=== PATIENT | male | born 1965 | race American Indian/Alaskan Native ===

== ENCOUNTER 2018-12-27 03:20 | Emergency (ER) | payer MEDICARE ==
[2018-12-27] MEDS ORDERED: ZOFRAN IV ONE (03:46)
[2018-12-27] MEDS ORDERED: SUBLIMAZE IV ONE (03:46)
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
[2018-12-27 04:24] LABS: Basophils # (Auto) 0.1 K/mm3 (0.0-0.1); Basophils % (Auto) 0.8 % (0.0-1.8); Eosinophils # (Auto) 0.1 K/mm3 (0.0-0.4); Eosinophils % (Auto) 0.5 % (0.0-4.3); Hematocrit 34.3 % (35.5-45.6); Hemoglobin 10.9 gm/dl (11.8-15.2); Lymphocytes # (Auto) 2.3 K/mm3 (1.2-5.4); Lymphocytes % (Auto) 21.9 % (13.4-35.0); Mean Corpuscular HGB Conc 32 % (32-34); Mean Corpuscular Volume 75 fl (84-94); Monocytes # (Auto) 0.5 K/mm3 (0.0-0.8); Monocytes % (Auto) 4.8 % (0.0-7.3); Platelet Count 317 K/mm3 (140-440); Red Blood Count 4.56 M/mm3 (3.65-5.03); Red Cell Distribution Width 18.4 % (13.2-15.2)
[2018-12-27 04:36] LABS: Bacteria,Urine 1+ /HPF (Negative); Bilirubin,Urine NEG (Negative); Blood,Urine SM (Negative); Color,Urine Yellow (Yellow); Mucus,Urine FEW /HPF
[2018-12-27 04:39] LABS: WBC,Urine > 182.0 /HPF (0.0-6.0)
[2018-12-27 04:41] LABS: BUN/Creatinine Ratio 13; Blood Urea Nitrogen 10 mg/dL (9-20); Calcium 9.1 mg/dL (8.4-10.2); Hemolysis Index 3; INR 1.14 (0.87-1.13)
[2018-12-27 04:42] LABS: Partial Thromboplastin Time 31.2 Sec. (24.2-36.6)
[2018-12-27] MEDS ORDERED: LEVAQUIN PO ONE (04:45)
--- NOTE | 2018-12-27 05:25 | Ultrasound Report ---
US testicular doppler comp INDICATION / CLINICAL INFORMATION: right testicle swelling. COMPARISON: None available. FINDINGS: Study was limited due to patient tenderness. No testicular masses. Is a right hydrocele. Doppler imaging shows normal testicular blood flow bilaterally There is incomplete imaging of the epididymal structures. IMPRESSION: 1. Right hydrocele. 2. No evidence of torsion. Signer Name: Kal Merritt MD Signed: 12/27/2018 5:20 AM Workstation Name: [id number]
[2018-12-27 07:11] VITALS: BP 127/72
== END 2018-12-27 07:15 | disposition home or self-care (01) ==
LOC: ED 03:20
DX: N39.0 Urinary tract infection, site not specified (principal); I10 Essential (primary) hypertension; F41.9 Anxiety disorder, unspecified; F17.200 Nicotine dependence, unspecified, uncomplicated; F12.10 Cannabis abuse, uncomplicated; F14.90 Cocaine use, unspecified, uncomplicated; M79.10 Myalgia, unspecified site; G89.29 Other chronic pain; Z98.890 Other specified postprocedural states; Z88.8 Allergy status to other drugs, medicaments and biological substances; Z79.1 Long term (current) use of non-steroidal anti-inflammatories (NSAID); Z79.899 Other long term (current) drug therapy
CPT/HCPCS: 36415; 80048; 81001; 85025; 85610; 85730; 87086; 93975; 96374; 96375; 99285; J2405; J3010; 87076; 87186

== ENCOUNTER 2019-02-08 08:40 | Inpatient (IN) | payer MEDICARE ==
[2019-02-08] MEDS ORDERED: NORCO 5/325 ONE (09:44)
[2019-02-08] MEDS ORDERED: NORCO 5/325 PO ONE (09:51)
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
[2019-02-08] MEDS ORDERED: NEURONTIN PO ONE (11:03)
[2019-02-08] MEDS ORDERED: MORPHINE IV ONE (11:03)
[2019-02-08] MEDS ORDERED: NACL 0.9% 1000 ML 1,000 ML IV ONE (11:03)
[2019-02-08 11:07] LABS: Basophils # (Auto) 0.1 K/mm3 (0.0-0.1); Eosinophils # (Auto) 0.1 K/mm3 (0.0-0.4); Eosinophils % (Auto) 1.5 % (0.0-4.3); Hematocrit 35.4 % (35.5-45.6); Hemoglobin 11.3 gm/dl (11.8-15.2); Lymphocytes # (Auto) 1.9 K/mm3 (1.2-5.4); Lymphocytes % (Auto) 23.8 % (13.4-35.0); Mean Corpuscular HGB Conc 32 % (32-34); Mean Corpuscular Volume 76 fl (84-94); Monocytes # (Auto) 0.6 K/mm3 (0.0-0.8); Monocytes % (Auto) 6.8 % (0.0-7.3); Platelet Count 297 K/mm3 (140-440); Red Blood Count 4.68 M/mm3 (3.65-5.03); Red Cell Distribution Width 19.7 % (13.2-15.2)
--- NOTE | 2019-02-08 11:13 | Ultrasound Report ---
TESTICULAR ULTRASOUND INDICATION: Unspecified testicular pain. COMPARISON Testicular ultrasound from 12/27/2018. FINDINGS -- RIGHT TESTIS: Size: 3.8 x 2.1 x 3.5 cm. Echotexture: Normal. Color Doppler Flow: Normal. Lesions: None. EPIDIDYMIS: Size: Normal. Echotexture: Normal. Color Doppler Flow: Normal. Lesions: None. Hydrocele: Similar large right hydrocele. Varicocele: None. Additional Findings: None. FINDINGS -- LEFT TESTIS: Size: 3.9 x 2.1 x 2.4 cm. Echotexture: Similar nonspecific heterogeneity compared to the nickolas or study. Color Doppler Flow: Normal. Lesions: None. EPIDIDYMIS: Size: Normal. Echotexture: Normal. Color Doppler Flow: Normal. Lesions: None. Hydrocele: None. Varicocele: None. Additional Findings: None. IMPRESSION: 1. Similar large right hydrocele. 2. Similar nonspecific heterogeneity of the left testicle. 3. No new acute sonographic abnormality of the testicles/scrotum. Signer Name: Mamadou Lassiter MD Signed: 02/08/2019 11:09 AM Workstation Name: [id number]
[2019-02-08] MEDS ORDERED: ZOSYN/NS 4.5GM/100ML 4.5 GM/100 ML VIAL IV ONE (11:32)
[2019-02-08 11:41] LABS: BUN/Creatinine Ratio 17; Blood Urea Nitrogen 12 mg/dL (9-20); Calcium 9.6 mg/dL (8.4-10.2); Hemolysis Index 0
[2019-02-08 12:16] LABS: Bacteria,Urine 1+ /HPF (Negative); Bilirubin,Urine NEG (Negative); Blood,Urine NEG (Negative); Color,Urine Yellow (Yellow); Protein,Urine <15 mg/dL mg/dL (Negative); Urobilinogen,Urine < 2.0 mg/dL (<2.0)
[2019-02-08 12:31] LABS: Alanine Aminotransferase 6 units/L (7-56); Albumin 3.4 g/dL (3.9-5)
[2019-02-08 12:35] LABS: Bilirubin,Direct < 0.2 mg/dL (0-0.2)
--- NOTE | 2019-02-08 17:32 | Cat Scan Report ---
CT abdomen pelvis wo con INDICATION / CLINICAL INFORMATION: abnd pain grooin pain, scan through testicles. TECHNIQUE: Axial CT imaging of abdomen and pelvis was obtained without contrast. Coronal and sagittal reformatte d imaging obtained and reviewed. All CT scans at this location are performed using CT dose reduction for ALARA by means of automated exposure control. COMPARISON: Comparison is with testicular ultrasound performed earlier today. FINDINGS: CT abdomen without contrast demonstrates grossly normal appearance of the liver, spleen, pancreas, an d right kidney. Both adrenal glands are unremarkable. No gallbladder pathology noted. IVC filter is p resent. Left kidney is absent. CT pelvis without contrast shows no suggestion of pelvic mass, free fluid, or focal inflammatory scott ge. The prostate gland is mildly enlarged. Urinary bladder wall is mildly thickened. The colon contai ns a large amount of stool suggesting constipation. GI tract is otherwise unremarkable. There are enlarged lymph nodes throughout both inguinal areas. There is a large decubitus ulcer in the right gluteal region. No drainable fluid noted. There is scle rosis of the right is seen adjacent to the decubitus ulcer. There is slight cortical irregularity and osteomyelitis cannot be excluded. Visualized lung bases are clear. No additional significant osseous abnormality noted. IMPRESSION: 1. No acute finding within the abdomen or pelvis. 2. Absent left kidney. 3. Constipation. No fecal impaction. 4. Large right gluteal decubitus ulcer. The adjacent bone, right ischium, is sclerotic and irregular. I cannot exclude the possibility of osteomyelitis. 5. Bilateral inguinal adenopathy. Given the presence of the large right decubitus ulcer, I suspect th e adenopathy is reactive. Signer Name: Roro Nuñez MD Signed: 02/08/2019 5:28 PM Workstation Name: [id number]
[2019-02-08] MEDS ORDERED: CEPHULAC PO ONE (17:49)
[2019-02-08] MEDS ORDERED: TYLENOL PO PRN (22:21)
[2019-02-08] MEDS ORDERED: ZOFRAN IV PRN (22:21)
[2019-02-08] MEDS ORDERED: SODIUM CHLORIDE FLUSH SYRINGE 10 ML IV PRN (22:21)
[2019-02-08] MEDS: ZOSYN/NS 4.5GM/100ML 4.5 GM/100 ML VIAL IV SCH (23:36)
[2019-02-08] MEDS: NACL 0.9% 1000 ML 1,000 ML IV SCH (23:36)
[2019-02-08] MEDS: SODIUM CHLORIDE FLUSH SYRINGE 10 ML IV SCH (23:36)
[2019-02-09] MEDS: DILAUDID IV PRN ×4 (00:43→23:06)
[2019-02-09] MEDS: ZOSYN/NS 4.5GM/100ML 4.5 GM/100 ML VIAL IV SCH ×3 (06:21→22:00)
[2019-02-09 06:23] LABS: Red Blood Count 4.59 M/mm3 (3.65-5.03)
[2019-02-09 06:24] LABS: Basophils # (Auto) 0.1 K/mm3 (0.0-0.1); Basophils % (Auto) 1.1 % (0.0-1.8); Eosinophils # (Auto) 0.2 K/mm3 (0.0-0.4); Eosinophils % (Auto) 2.7 % (0.0-4.3); Hematocrit 34.8 % (35.5-45.6); Hemoglobin 11.1 gm/dl (11.8-15.2); Lymphocytes # (Auto) 1.8 K/mm3 (1.2-5.4); Lymphocytes % (Auto) 28.3 % (13.4-35.0); Mean Corpuscular HGB Conc 32 % (32-34); Mean Corpuscular Volume 76 fl (84-94); Monocytes # (Auto) 0.5 K/mm3 (0.0-0.8); Monocytes % (Auto) 7.1 % (0.0-7.3); Platelet Count 282 K/mm3 (140-440); Red Cell Distribution Width 19.8 % (13.2-15.2)
[2019-02-09 06:34] LABS: INR 1.12 (0.87-1.13)
[2019-02-09 06:50] LABS: Alanine Aminotransferase 6 units/L (7-56); BUN/Creatinine Ratio 14; Blood Urea Nitrogen 10 mg/dL (9-20); Calcium 8.7 mg/dL (8.4-10.2); Hemolysis Index 1
--- NOTE | 2019-02-09 07:23 | Event Note ---
Date: 02/08/19 See H/p in reports UTI --proteus Mirabilis sensitivity to zosyn IV
--- NOTE | 2019-02-09 07:59 | History and Physical Report ---
CHIEF COMPLAINT: Dysuria. HISTORY OF PRESENT ILLNESS: A 53-year-old male presents with bilateral testicular swelling for the last 6 months. Also, left groin pain. Positive chills and positive sweats and the patient self-catheterizes. The patient also has chronic sacral wounds. The patient was admitted to the hospital for genitourinary issues last month and was discharged on Levaquin. Subsequent cultures demonstrated extended spectrum beta lactamase Proteus mirabilis, which is resistant to most antibiotics with the exception of Zosyn. The patient is also requesting gabapentin for neuropathic pain. PAST MEDICAL HISTORY: Significant for hypertension, anxiety, dementia, thoracic pain and sacral decubitus ulcers. PAST SURGICAL HISTORY: Left kidney removal, left groin filter, removal of approximately 6 inches of small intestine. SOCIAL HISTORY: Smokes every day. Marijuana. REVIEW OF SYSTEMS: Significant for chronic weakness in both lower extremities and sacral decubitus ulcers and dysuria. PHYSICAL EXAMINATION: GENERAL: Middle-aged male. VITAL SIGNS: Temperature is 98.4, pulse is 88, respirations are 18, sats are 95%, blood pressure 106/73. HEENT: Unremarkable. Pupils equal and reactive. NECK: Supple, no lymphadenopathy, no thyromegaly. LUNGS: Clear to auscultation and percussion. Good air entry. CARDIOVASCULAR: S1, S2 heard. No gallop, no murmur, no rub. Apical impulse in left fifth intercostal space in midclavicular line. ABDOMEN: Soft and benign. Sacral decubitus ulcer stage IV present. EXTREMITIES: 3/5 power in both lower extremities. SKIN: Sacral decubitus ulcer. CENTRAL NERVOUS SYSTEM: Paraplegic. GENITAL: Testicular swelling. Tender to touch. LABORATORY DATA: Significant for white count of 8200, H and H are 11.3 and 35.4. Sodium is 136, BUN and creatinine are 12 and 0.7. LFTs are normal. Urine wbc shows 42. ASSESSMENT AND PLAN: 1. Urinary tract infection with Proteus mirabilis, extended spectrum beta lactamase. The patient started on IV Zosyn. 2. Sacral decubitus ulcer. Surgery and wound consult requested. IV Zosyn for now. Continue gabapentin. 3. Anticoagulation. Continue Coumadin. Possibly to prevent deep venous thrombosis. 4. Testicular swelling. Urology consulted. The patient already on antibiotics. A testicular ultrasound ordered. 5. Deep venous thrombosis prophylaxis. The patient already on warfarin. JOB# [id number] SANTY/REGAN
[2019-02-09] MEDS: PEPCID PO SCH ×2 (11:12→22:00)
[2019-02-09] MEDS: NACL 0.9% 1000 ML 1,000 ML IV SCH (11:13)
[2019-02-09] MEDS: SODIUM CHLORIDE FLUSH SYRINGE 10 ML IV SCH ×2 (11:13→22:00)
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
--- NOTE | 2019-02-09 14:52 | Progress Note ---
Assessment and Plan Assessment and plan: Urinary tract infection Admitted to med/surg Patient evaluated by ID Physician For Zosyn X 21 days Paraplegia patient does self-catheterization Decubitus ulcer surgery consulted On Coumadin. Details unclear Full code status History Interval history: Groin pain No fever Hospitalist Physical - Physical exam Narrative exam: Gen: Not in acute distress, lying in bed HEENT: Normocephalic, atraumatic Neck: supple, no JVD Heart: S1 and S2 reg, tachy, no murmurs, rubs or gallop Lungs: Clear to auscultation, no rhonchi, no wheeze Abd: soft, mild epigastric tender, no rebound, non distended, normal BS, Ext: No edema, no clubbing, no cyanosis Neuro: Awake, alert, oriented X 3, paraplegia Genuitourinary: Hannon catheter in - Constitutional Vitals: Temp Pulse Resp BP Pulse Ox 98.4 F 54 L 20 150/89 98 02/09/19 05:00 02/09/19 05:00 02/09/19 05:00 02/09/19 05:00 02/09/19 05:00 Results - Labs CBC & Chem 7: 02/09/19 05:48 02/09/19 05:48 Labs: Laboratory Last Values WBC 6.5 K/mm3 (4.5-11.0) 02/09/19 05:48 RBC 4.59 M/mm3 (3.65-5.03) 02/09/19 05:48 Hgb 11.1 gm/dl (11.8-15.2) L 02/09/19 05:48 Hct 34.8 % (35.5-45.6) L 02/09/19 05:48 MCV 76 fl (84-94) L 02/09/19 05:48 MCH 24 pg (28-32) L 02/09/19 05:48 MCHC 32 % (32-34) 02/09/19 05:48 RDW 19.8 % (13.2-15.2) H 02/09/19 05:48 Plt Count 282 K/mm3 (140-440) 02/09/19 05:48 Lymph % (Auto) 28.3 % (13.4-35.0) 02/09/19 05:48 [place] % (Auto) 7.1 % (0.0-7.3) 02/09/19 05:48 Eos % (Auto) 2.7 % (0.0-4.3) 02/09/19 05:48 Baso % (Auto) 1.1 % (0.0-1.8) 02/09/19 05:48 Lymph # 1.8 K/mm3 (1.2-5.4) 02/09/19 05:48 Garden # 0.5 K/mm3 (0.0-0.8) 02/09/19 05:48 Eos # 0.2 K/mm3 (0.0-0.4) 02/09/19 05:48 Baso # 0.1 K/mm3 (0.0-0.1) 02/09/19 05:48 Seg Neutrophils % 60.8 % (40.0-70.0) 02/09/19 05:48 Seg Neutrophils # 4.0 K/mm3 (1.8-7.7) 02/09/19 05:48 PT 14.1 Sec. (12.2-14.9) 02/09/19 05:48 INR 1.12 (0.87-1.13) 02/09/19 05:48 Sodium 135 mmol/L (137-145) L 02/09/19 05:48 Potassium 4.0 mmol/L (3.6-5.0) 02/09/19 05:48 Chloride 101.1 mmol/L (98-107) 02/09/19 05:48 Carbon Dioxide 24 mmol/L (22-30) 02/09/19 05:48 14 mmol/L 02/09/19 05:48 BUN 10 mg/dL (9-20) 02/09/19 05:48 0.7 mg/dL (0.8-1.5) L 02/09/19 05:48 Estimated GFR > 60 ml/min 02/09/19 05:48 14 % 02/09/19 05:48 Glucose 122 mg/dL (75-100) H 02/09/19 05:48 6.4 % (4-6) H 02/08/19 10:34 Lactic Acid 0.80 mmol/L (0.7-2.0) 02/08/19 10:34 Calcium 8.7 mg/dL (8.4-10.2) 02/09/19 05:48 0.20 mg/dL (0.1-1.2) 02/09/19 05:48 < 0.2 mg/dL (0-0.2) 02/08/19 10:34 0.0 mg/dL 02/08/19 10:34 AST 8 units/L (5-40) 02/09/19 05:48 ALT 6 units/L (7-56) L 02/09/19 05:48 60 units/L (35-129) 02/09/19 05:48 147 units/L (55-170) 02/08/19 10:34 7.4 g/dL (6.3-8.2) 02/09/19 05:48 3.0 g/dL (3.9-5) L 02/09/19 05:48 0.7 % 02/09/19 05:48 16 units/L (13-60) 02/08/19 10:34 Yellow (Yellow) 02/08/19 Unknown Slightly-cloudy (Clear) 02/08/19 Unknown 6.0 (5.0-7.0) 02/08/19 Unknown Ur Specific [place] 1.016 (1.003-1.030) 02/08/19 Unknown <15 mg/dl mg/dL (Negative) 02/08/19 Unknown Neg mg/dL (Negative) 02/08/19 Unknown Neg mg/dL (Negative) 02/08/19 Unknown Neg (Negative) 02/08/19 Unknown Pos (Negative) 02/08/19 Unknown Neg (Negative) 02/08/19 Unknown < 2.0 mg/dL (<2.0) 02/08/19 Unknown Ur Leukocyte Esterase Mod (Negative) 02/08/19 Unknown 42.0 /HPF (0.0-6.0) H 02/08/19 Unknown 3.0 /HPF (0.0-6.0) 02/08/19 Unknown U Epithel Cells (Auto) 2.0 /HPF (0-13.0) 02/08/19 Unknown 1+ /HPF (Negative) 02/08/19 Unknown Active Medications - Current Medications Current Medications: Generic Name Dose Route Start Last Admin Trade Name Freq PRN Reason Stop Dose Admin Acetaminophen 650 mg 02/08/19 22:21 Tylenol PO Q4H PRN Pain MILD(1-3)/Fever >100.5/PARKS Famotidine 20 mg 02/09/19 10:00 02/09/19 11:12 Pepcid PO 20 mg BID JOSELYN Administration Gabapentin 300 mg 02/09/19 14:00 Neurontin PO Q8HR JOSELYN Hydromorphone HCl 0.5 mg 02/08/19 22:21 02/09/19 11:13 Dilaudid IV 0.5 mg Q3H PRN Administration Pain , Severe (7-10) Sodium Chloride 1,000 mls @ 100 mls/hr 02/08/19 23:00 02/09/19 11:13 Nacl 0.9% 1000 Ml IV 100 mls/hr DIRECT JOSELYN Administration Piperacillin Sod/Tazobactam Sod 4.5 gm in 100 mls @ 200 mls/hr 02/08/19 23:00 02/09/19 06:21 Zosyn/Ns 4.5gm/100ml IV 200 mls/hr Q8HR JOSELYN Administration Protocol Ondansetron HCl 4 mg 02/08/19 22:21 Zofran IV Q8H PRN Nausea And Vomiting Sodium Chloride 10 ml 02/08/19 23:00 02/09/19 11:13 Sodium Chloride Flush Syringe 10 Ml IV 10 ml BID JOSELYN Administration Sodium Chloride 10 ml 02/08/19 22:21 Sodium Chloride Flush Syringe 10 Ml IV PRN PRN LINE FLUSH Warfarin Sodium 10 mg 02/09/19 17:00 Coumadin PO DAILY@1700 [facility] Protocol Nutrition/Malnutrition Assess - Dietary Evaluation Nutrition/Malnutrition Findings: Nutrition Notes Start: 02/09/19 11:52 Freq: Status: Active Protocol: Document 02/09/19 11:52 KAITLIN (Rec: 02/09/19 11:53 KAITLIN [email or web address]) Nutrition Notes Need for Assessment generated from: Education Initial or Follow up Brief Note Pertinent Medications Coumadin Subjective/Other Information Pt screened for coumadin therapy. He is sleeping soundly at time of visit (11: 06). Nutrition Intervention Follow-Up By: 02/10/19 Additional Comments F/U: DNI education needs
[2019-02-09] MEDS: NEURONTIN PO SCH ×2 (16:31→22:00)
[2019-02-09] MEDS: COUMADIN PO SCH (17:16)
[2019-02-10] MEDS: ZOSYN/NS 4.5GM/100ML 4.5 GM/100 ML VIAL IV SCH ×3 (06:10→23:08)
[2019-02-10] MEDS: NACL 0.9% 1000 ML 1,000 ML IV SCH (06:10)
[2019-02-10] MEDS: NEURONTIN PO SCH ×3 (06:12→23:08)
[2019-02-10 08:31] LABS: INR 1.12 (0.87-1.13)
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
[2019-02-10] MEDS: PEPCID PO SCH ×2 (12:01→23:08)
[2019-02-10] MEDS: DILAUDID IV PRN ×4 (12:01→23:09)
[2019-02-10] MEDS: SODIUM CHLORIDE FLUSH SYRINGE 10 ML IV SCH ×2 (12:02→23:10)
--- NOTE | 2019-02-10 12:55 | Progress Note ---
Assessment and Plan Assessment and plan: Urinary tract infection Admitted to med/surg Patient evaluated by ID Physician For Zosyn X 21 days Paraplegia patient does self-catheterization Decubitus ulcer surgery consulted On Coumadin. Details unclear Full code status patient to be discharged after arrangements made for home iv antibiotic History Interval history: Groin pain No fever Hospitalist Physical - Physical exam Narrative exam: Gen: Not in acute distress, lying in bed HEENT: Normocephalic, atraumatic Neck: supple, no JVD Heart: S1 and S2 reg, tachy, no murmurs, rubs or gallop Lungs: Clear to auscultation, no rhonchi, no wheeze Abd: soft, mild epigastric tender, no rebound, non distended, normal BS, Ext: No edema, no clubbing, no cyanosis Neuro: Awake, alert, oriented X 3, paraplegia Genuitourinary: Hannon catheter in - Constitutional Vitals: Temp Pulse Resp BP Pulse Ox 98.6 F 73 18 118/53 98 02/09/19 22:08 02/09/19 22:08 02/09/19 23:06 02/09/19 22:08 02/09/19 22:08 Results - Labs CBC & Chem 7: 02/09/19 05:48 02/09/19 05:48 Labs: Laboratory Last Values WBC 6.5 K/mm3 (4.5-11.0) 02/09/19 05:48 RBC 4.59 M/mm3 (3.65-5.03) 02/09/19 05:48 Hgb 11.1 gm/dl (11.8-15.2) L 02/09/19 05:48 Hct 34.8 % (35.5-45.6) L 02/09/19 05:48 MCV 76 fl (84-94) L 02/09/19 05:48 MCH 24 pg (28-32) L 02/09/19 05:48 MCHC 32 % (32-34) 02/09/19 05:48 RDW 19.8 % (13.2-15.2) H 02/09/19 05:48 Plt Count 282 K/mm3 (140-440) 02/09/19 05:48 Lymph % (Auto) 28.3 % (13.4-35.0) 02/09/19 05:48 [place] % (Auto) 7.1 % (0.0-7.3) 02/09/19 05:48 Eos % (Auto) 2.7 % (0.0-4.3) 02/09/19 05:48 Baso % (Auto) 1.1 % (0.0-1.8) 02/09/19 05:48 Lymph # 1.8 K/mm3 (1.2-5.4) 02/09/19 05:48 White # 0.5 K/mm3 (0.0-0.8) 02/09/19 05:48 Eos # 0.2 K/mm3 (0.0-0.4) 02/09/19 05:48 Baso # 0.1 K/mm3 (0.0-0.1) 02/09/19 05:48 Seg Neutrophils % 60.8 % (40.0-70.0) 02/09/19 05:48 Seg Neutrophils # 4.0 K/mm3 (1.8-7.7) 02/09/19 05:48 PT 14.1 Sec. (12.2-14.9) 02/10/19 07:43 INR 1.12 (0.87-1.13) 02/10/19 07:43 Sodium 135 mmol/L (137-145) L 02/09/19 05:48 Potassium 4.0 mmol/L (3.6-5.0) 02/09/19 05:48 Chloride 101.1 mmol/L (98-107) 02/09/19 05:48 Carbon Dioxide 24 mmol/L (22-30) 02/09/19 05:48 14 mmol/L 02/09/19 05:48 BUN 10 mg/dL (9-20) 02/09/19 05:48 0.7 mg/dL (0.8-1.5) L 02/09/19 05:48 Estimated GFR > 60 ml/min 02/09/19 05:48 14 % 02/09/19 05:48 Glucose 122 mg/dL (75-100) H 02/09/19 05:48 6.4 % (4-6) H 02/08/19 10:34 Lactic Acid 0.80 mmol/L (0.7-2.0) 02/08/19 10:34 Calcium 8.7 mg/dL (8.4-10.2) 02/09/19 05:48 0.20 mg/dL (0.1-1.2) 02/09/19 05:48 < 0.2 mg/dL (0-0.2) 02/08/19 10:34 0.0 mg/dL 02/08/19 10:34 AST 8 units/L (5-40) 02/09/19 05:48 ALT 6 units/L (7-56) L 02/09/19 05:48 60 units/L (35-129) 02/09/19 05:48 147 units/L (55-170) 02/08/19 10:34 7.4 g/dL (6.3-8.2) 02/09/19 05:48 3.0 g/dL (3.9-5) L 02/09/19 05:48 0.7 % 02/09/19 05:48 16 units/L (13-60) 02/08/19 10:34 Yellow (Yellow) 02/08/19 Unknown Slightly-cloudy (Clear) 02/08/19 Unknown 6.0 (5.0-7.0) 02/08/19 Unknown Ur Specific [place] 1.016 (1.003-1.030) 02/08/19 Unknown <15 mg/dl mg/dL (Negative) 02/08/19 Unknown Neg mg/dL (Negative) 02/08/19 Unknown Neg mg/dL (Negative) 02/08/19 Unknown Neg (Negative) 02/08/19 Unknown Pos (Negative) 02/08/19 Unknown Neg (Negative) 02/08/19 Unknown < 2.0 mg/dL (<2.0) 02/08/19 Unknown Ur Leukocyte Esterase Mod (Negative) 02/08/19 Unknown 42.0 /HPF (0.0-6.0) H 02/08/19 Unknown 3.0 /HPF (0.0-6.0) 02/08/19 Unknown U Epithel Cells (Auto) 2.0 /HPF (0-13.0) 02/08/19 Unknown 1+ /HPF (Negative) 02/08/19 Unknown Active Medications - Current Medications Current Medications: Generic Name Dose Route Start Last Admin Trade Name Freq PRN Reason Stop Dose Admin Acetaminophen 650 mg 08/27/19 22:21 Tylenol PO Q4H PRN Pain MILD(1-3)/Fever >100.5/PARKS Famotidine 20 mg 02/09/19 10:00 02/10/19 12:01 Pepcid PO 20 mg BID JOSELYN Administration Gabapentin 300 mg 02/09/19 14:00 02/10/19 06:12 Neurontin PO 300 mg Q8HR JOSELYN Administration Hydromorphone HCl 0.5 mg 02/08/19 22:21 02/10/19 12:01 Dilaudid IV 0.5 mg Q3H PRN Administration Pain , Severe (7-10) Sodium Chloride 1,000 mls @ 100 mls/hr 02/08/19 23:00 02/10/19 06:10 Nacl 0.9% 1000 Ml IV 100 mls/hr DIRECT JOSELYN Administration Piperacillin Sod/Tazobactam Sod 4.5 gm in 100 mls @ 200 mls/hr 02/08/19 23:00 02/10/19 06:10 Zosyn/Ns 4.5gm/100ml IV 02/15/19 14:29 200 mls/hr Q8HR JOSELYN Administration Protocol Ondansetron HCl 4 mg 02/08/19 22:21 Zofran IV Q8H PRN Nausea And Vomiting Sodium Chloride 10 ml 02/08/19 23:00 02/10/19 12:02 Sodium Chloride Flush Syringe 10 Ml IV 10 ml BID JOSELYN Administration Sodium Chloride 10 ml 02/08/19 22:21 Sodium Chloride Flush Syringe 10 Ml IV PRN PRN LINE FLUSH Warfarin Sodium 10 mg 02/09/19 17:00 02/09/19 17:16 Coumadin PO 10 mg DAILY@1700 JOSELYN Administration Protocol Nutrition/Malnutrition Assess - Dietary Evaluation Nutrition/Malnutrition Findings: Nutrition Notes Start: 02/09/19 11:52 Freq: Status: Active Protocol: Document 02/09/19 11:52 KAITLIN (Rec: 02/09/19 11:53 KAITLIN [email or web address]) Nutrition Notes Need for Assessment generated from: Education Initial or Follow up Brief Note Pertinent Medications Coumadin Subjective/Other Information Pt screened for coumadin therapy. He is sleeping soundly at time of visit (11: 06). Nutrition Intervention Follow-Up By: 02/10/19 Additional Comments F/U: DNI education needs
[2019-02-10] MEDS: COUMADIN PO SCH (20:01)
[2019-02-11 05:28] LABS: INR 1.07 (0.87-1.13)
[2019-02-11] MEDS: NEURONTIN PO SCH ×3 (07:00→21:15)
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
[2019-02-11] MEDS ORDERED: PERCOCET 5/325 PO PRN (09:30)
[2019-02-11] MEDS: DILAUDID IV PRN ×4 (11:31→21:51)
[2019-02-11] MEDS: PEPCID PO SCH ×2 (11:32→21:14)
[2019-02-11] MEDS: ZOSYN/NS 4.5GM/100ML 4.5 GM/100 ML VIAL IV SCH ×3 (11:45→21:14)
[2019-02-11] MEDS: SODIUM CHLORIDE FLUSH SYRINGE 10 ML IV SCH ×2 (11:49→21:15)
--- NOTE | 2019-02-11 15:33 | Progress Note ---
Assessment and Plan Assessment and plan: Urinary tract infection Admitted to med/surg Patient evaluated by ID Physician For home iv Antibiotic Zosyn X 21 days case management working on it Paraplegia patient does self-catheterization Decubitus ulcer surgery consulted On Coumadin. Details unclear Full code status Patient medically stable for discharge. Awaiting arrangements for home iv antibiotic History Interval history: Groin pain No fever Hospitalist Physical - Physical exam Narrative exam: Gen: Not in acute distress, lying in bed HEENT: Normocephalic, atraumatic Neck: supple, no JVD Heart: S1 and S2 reg, tachy, no murmurs, rubs or gallop Lungs: Clear to auscultation, no rhonchi, no wheeze Abd: soft, mild epigastric tender, no rebound, non distended, normal BS, Ext: No edema, no clubbing, no cyanosis Neuro: Awake, alert, oriented X 3, paraplegia Genuitourinary: Hannon catheter in - Constitutional Vitals: Temp Pulse Resp BP Pulse Ox 98.3 F 74 20 163/97 96 02/11/19 11:09 02/11/19 11:09 02/11/19 11:09 02/11/19 11:09 02/11/19 11:09 Results - Labs CBC & Chem 7: 02/09/19 05:48 02/09/19 05:48 Labs: Laboratory Last Values WBC 6.5 K/mm3 (4.5-11.0) 02/09/19 05:48 RBC 4.59 M/mm3 (3.65-5.03) 02/09/19 05:48 Hgb 11.1 gm/dl (11.8-15.2) L 02/09/19 05:48 Hct 34.8 % (35.5-45.6) L 02/09/19 05:48 MCV 76 fl (84-94) L 02/09/19 05:48 MCH 24 pg (28-32) L 02/09/19 05:48 MCHC 32 % (32-34) 02/09/19 05:48 RDW 19.8 % (13.2-15.2) H 02/09/19 05:48 Plt Count 282 K/mm3 (140-440) 02/09/19 05:48 Lymph % (Auto) 28.3 % (13.4-35.0) 02/09/19 05:48 [place] % (Auto) 7.1 % (0.0-7.3) 02/09/19 05:48 Eos % (Auto) 2.7 % (0.0-4.3) 02/09/19 05:48 Baso % (Auto) 1.1 % (0.0-1.8) 02/09/19 05:48 Lymph # 1.8 K/mm3 (1.2-5.4) 02/09/19 05:48 [place] # 0.5 K/mm3 (0.0-0.8) 02/09/19 05:48 Eos # 0.2 K/mm3 (0.0-0.4) 02/09/19 05:48 Baso # 0.1 K/mm3 (0.0-0.1) 02/09/19 05:48 Seg Neutrophils % 60.8 % (40.0-70.0) 02/09/19 05:48 Seg Neutrophils # 4.0 K/mm3 (1.8-7.7) 02/09/19 05:48 PT 13.6 Sec. (12.2-14.9) 02/11/19 04:28 INR 1.07 (0.87-1.13) 02/11/19 04:28 Sodium 135 mmol/L (137-145) L 02/09/19 05:48 Potassium 4.0 mmol/L (3.6-5.0) 02/09/19 05:48 Chloride 101.1 mmol/L (98-107) 02/09/19 05:48 Carbon Dioxide 24 mmol/L (22-30) 02/09/19 05:48 14 mmol/L 02/09/19 05:48 BUN 10 mg/dL (9-20) 02/09/19 05:48 0.7 mg/dL (0.8-1.5) L 02/09/19 05:48 Estimated GFR > 60 ml/min 02/09/19 05:48 14 % 02/09/19 05:48 Glucose 122 mg/dL (75-100) H 02/09/19 05:48 6.4 % (4-6) H 02/08/19 10:34 Lactic Acid 0.80 mmol/L (0.7-2.0) 02/08/19 10:34 Calcium 8.7 mg/dL (8.4-10.2) 02/09/19 05:48 0.20 mg/dL (0.1-1.2) 02/09/19 05:48 < 0.2 mg/dL (0-0.2) 02/08/19 10:34 0.0 mg/dL 02/08/19 10:34 AST 8 units/L (5-40) 02/09/19 05:48 ALT 6 units/L (7-56) L 02/09/19 05:48 60 units/L (35-129) 02/09/19 05:48 147 units/L (55-170) 02/08/19 10:34 7.4 g/dL (6.3-8.2) 02/09/19 05:48 3.0 g/dL (3.9-5) L 02/09/19 05:48 0.7 % 02/09/19 05:48 16 units/L (13-60) 02/08/19 10:34 Yellow (Yellow) 02/08/19 Unknown Slightly-cloudy (Clear) 02/08/19 Unknown 6.0 (5.0-7.0) 02/08/19 Unknown Ur Specific [place] 1.016 (1.003-1.030) 02/08/19 Unknown <15 mg/dl mg/dL (Negative) 02/08/19 Unknown Neg mg/dL (Negative) 02/08/19 Unknown Neg mg/dL (Negative) 02/08/19 Unknown Neg (Negative) 02/08/19 Unknown Pos (Negative) 02/08/19 Unknown Neg (Negative) 02/08/19 Unknown < 2.0 mg/dL (<2.0) 02/08/19 Unknown Ur Leukocyte Esterase Mod (Negative) 02/08/19 Unknown 42.0 /HPF (0.0-6.0) H 02/08/19 Unknown 3.0 /HPF (0.0-6.0) 02/08/19 Unknown U Epithel Cells (Auto) 2.0 /HPF (0-13.0) 02/08/19 Unknown 1+ /HPF (Negative) 02/08/19 Unknown Active Medications - Current Medications Current Medications: Generic Name Dose Route Start Last Admin Trade Name Freq PRN Reason Stop Dose Admin Acetaminophen 650 mg 02/08/19 22:21 Tylenol PO Q4H PRN Pain MILD(1-3)/Fever >100.5/PARKS Famotidine 20 mg 02/09/19 10:00 02/11/19 11:32 Pepcid PO 20 mg BID JOSELYN Administration Gabapentin 300 mg 02/09/19 14:00 02/11/19 13:34 Neurontin PO 300 mg Q8HR JOSELYN Administration Hydromorphone HCl 0.5 mg 02/08/19 22:21 02/11/19 15:12 Dilaudid IV 0.5 mg Q3H PRN Administration Pain , Severe (7-10) Sodium Chloride 1,000 mls @ 100 mls/hr 02/08/19 23:00 02/10/19 06:10 Nacl 0.9% 1000 Ml IV 100 mls/hr DIRECT JOSELYN Administration Piperacillin Sod/Tazobactam Sod 4.5 gm in 100 mls @ 200 mls/hr 02/08/19 23:00 02/11/19 11:45 Zosyn/Ns 4.5gm/100ml IV 02/15/19 14:29 200 mls/hr Q8HR [facility] Administration Protocol Ondansetron HCl 4 mg 02/08/19 22:21 Zofran IV Q8H PRN Nausea And Vomiting Oxycodone/Acetaminophen 1 tab 02/11/19 09:30 Percocet 5/325 PO Q6H PRN Pain, Moderate (4-6) Sodium Chloride 10 ml 02/08/19 23:00 02/11/19 11:49 Sodium Chloride Flush Syringe 10 Ml IV 10 ml BID JOSELYN Administration Sodium Chloride 10 ml 02/08/19 22:21 Sodium Chloride Flush Syringe 10 Ml IV PRN PRN LINE FLUSH Warfarin Sodium 10 mg 02/09/19 17:00 02/10/19 20:01 Coumadin PO 10 mg DAILY@1700 [facility] Administration Protocol Warfarin Sodium 2.5 mg 02/11/19 17:00 Coumadin PO DAILY@1700 [facility] Nutrition/Malnutrition Assess - Dietary Evaluation Nutrition/Malnutrition Findings: Nutrition Notes Start: 02/09/19 11:52 Freq: Status: Active Protocol: Document 02/10/19 13:53 RM (Rec: 02/10/19 14:01 RM [email or web address]) Nutrition Notes Initial or Follow up Assessment Current Diagnosis Hypertension Other Pertinent Diagnosis Anxiety, Dementia, R & L Ischium wounds Current Diet Cardiac Labs/Tests Reviewed Pertinent Medications Coumadin Height 6 ft 1 in Weight 97.7 kg [place] Body Weight (kg) 83.63 BMI 28.4 Subjective/Other Information Pt stated that his appetite is good and that he eats all of his meals. Pt has increased protein needs d/t wounds but declined high protein ONS and requested double protein instead. Pt familiar with Coumadin/Vit K diet education. Percent of energy/protein needs met: 94%/71% Burn Absent Trauma Absent #1 Nutrition Diagnosis Increased nutrient needs ( specify in comment below) Comments: arginine, glutamine, protein Etiology wound healing As Evidenced by Signs and Symptoms R & L ischium wounds Is patient on ventilator? No Is Patient Ambulatory and/or Out of Bed No REE-([facility]-confined to bed) 9904.066 Calculation Used for Recommendations [facility] Additional Notes Protein Needs: 117-147g (1.2-1 .5g/kg) Fluid Needs: 1 ml/kcal Nutrition Intervention Change Diet Order: Cardiac w/double protein Add Supplement/Snack (indicate name/kcal Gary BID /protein ) Provides kCal: 190 Provides Protein (gm) 5 Goal #1 Meet at least 75% of calorie and protein needs via PO intakes Goal #2 Gary intake Anticipated Discharge Needs: Cardiac diet Follow-Up By: 02/15/19 Additional Comments Follow for PO and Gary intakes
[2019-02-11] MEDS: COUMADIN PO SCH ×2 (18:24→18:26)
[2019-02-11] MEDS: NACL 0.9% 1000 ML 1,000 ML IV SCH (18:30)
[2019-02-12] MEDS: DILAUDID IV PRN ×7 (01:53→21:42)
[2019-02-12] MEDS: NEURONTIN PO SCH ×3 (05:29→21:43)
[2019-02-12] MEDS: ZOSYN/NS 4.5GM/100ML 4.5 GM/100 ML VIAL IV SCH ×3 (05:29→21:46)
[2019-02-12 06:20] LABS: INR 1.19 (0.87-1.13)
[2019-02-12] MEDS: PEPCID PO SCH ×2 (10:22→21:43)
[2019-02-12] MEDS: SODIUM CHLORIDE FLUSH SYRINGE 10 ML IV SCH ×2 (10:24→21:47)
--- NOTE | 2019-02-12 12:38 | Progress Note ---
Hospitalist Physical - Constitutional Vitals: Temp Pulse Resp BP Pulse Ox 97.9 F 60 20 116/69 93 02/12/19 04:49 02/12/19 08:40 02/12/19 04:49 02/12/19 08:40 02/12/19 04:49 Results - Labs CBC & Chem 7: 02/09/19 05:48 02/09/19 05:48 Labs: Laboratory Last Values WBC 6.5 K/mm3 (4.5-11.0) 02/09/19 05:48 RBC 4.59 M/mm3 (3.65-5.03) 02/09/19 05:48 Hgb 11.1 gm/dl (11.8-15.2) L 02/09/19 05:48 Hct 34.8 % (35.5-45.6) L 02/09/19 05:48 MCV 76 fl (84-94) L 02/09/19 05:48 MCH 24 pg (28-32) L 02/09/19 05:48 MCHC 32 % (32-34) 02/09/19 05:48 RDW 19.8 % (13.2-15.2) H 02/09/19 05:48 Plt Count 282 K/mm3 (140-440) 02/09/19 05:48 Lymph % (Auto) 28.3 % (13.4-35.0) 02/09/19 05:48 [place] % (Auto) 7.1 % (0.0-7.3) 02/09/19 05:48 Eos % (Auto) 2.7 % (0.0-4.3) 02/09/19 05:48 Baso % (Auto) 1.1 % (0.0-1.8) 02/09/19 05:48 Lymph # 1.8 K/mm3 (1.2-5.4) 02/09/19 05:48 [place] # 0.5 K/mm3 (0.0-0.8) 02/09/19 05:48 Eos # 0.2 K/mm3 (0.0-0.4) 02/09/19 05:48 Baso # 0.1 K/mm3 (0.0-0.1) 02/09/19 05:48 Seg Neutrophils % 60.8 % (40.0-70.0) 02/09/19 05:48 Seg Neutrophils # 4.0 K/mm3 (1.8-7.7) 02/09/19 05:48 PT 14.8 Sec. (12.2-14.9) 02/12/19 05:42 INR 1.19 (0.87-1.13) H 02/12/19 05:42 Sodium 135 mmol/L (137-145) L 02/09/19 05:48 Potassium 4.0 mmol/L (3.6-5.0) 02/09/19 05:48 Chloride 101.1 mmol/L (98-107) 02/09/19 05:48 Carbon Dioxide 24 mmol/L (22-30) 02/09/19 05:48 14 mmol/L 02/09/19 05:48 BUN 10 mg/dL (9-20) 02/09/19 05:48 0.7 mg/dL (0.8-1.5) L 02/09/19 05:48 Estimated GFR > 60 ml/min 02/09/19 05:48 14 % 02/09/19 05:48 Glucose 122 mg/dL (75-100) H 02/09/19 05:48 6.4 % (4-6) H 02/08/19 10:34 Lactic Acid 0.80 mmol/L (0.7-2.0) 02/08/19 10:34 Calcium 8.7 mg/dL (8.4-10.2) 02/09/19 05:48 0.20 mg/dL (0.1-1.2) 02/09/19 05:48 < 0.2 mg/dL (0-0.2) 02/08/19 10:34 0.0 mg/dL 02/08/19 10:34 AST 8 units/L (5-40) 02/09/19 05:48 ALT 6 units/L (7-56) L 02/09/19 05:48 60 units/L (35-129) 02/09/19 05:48 147 units/L (55-170) 02/08/19 10:34 7.4 g/dL (6.3-8.2) 02/09/19 05:48 3.0 g/dL (3.9-5) L 02/09/19 05:48 0.7 % 02/09/19 05:48 16 units/L (13-60) 02/08/19 10:34 Yellow (Yellow) 02/08/19 Unknown Slightly-cloudy (Clear) 02/08/19 Unknown 6.0 (5.0-7.0) 02/08/19 Unknown Ur Specific [place] 1.016 (1.003-1.030) 02/08/19 Unknown <15 mg/dl mg/dL (Negative) 02/08/19 Unknown Neg mg/dL (Negative) 02/08/19 Unknown Neg mg/dL (Negative) 02/08/19 Unknown Neg (Negative) 02/08/19 Unknown Pos (Negative) 02/08/19 Unknown Neg (Negative) 02/08/19 Unknown < 2.0 mg/dL (<2.0) 02/08/19 Unknown Ur Leukocyte Esterase Mod (Negative) 02/08/19 Unknown 42.0 /HPF (0.0-6.0) H 02/08/19 Unknown 3.0 /HPF (0.0-6.0) 02/08/19 Unknown U Epithel Cells (Auto) 2.0 /HPF (0-13.0) 02/08/19 Unknown 1+ /HPF (Negative) 02/08/19 Unknown Active Medications - Current Medications Current Medications: Generic Name Dose Route Start Last Admin Trade Name Freq PRN Reason Stop Dose Admin Acetaminophen 650 mg 02/08/19 22:21 Tylenol PO Q4H PRN Pain MILD(1-3)/Fever >100.5/PARKS Famotidine 20 mg 02/09/19 10:00 02/12/19 10:22 Pepcid PO 20 mg BID JOSELYN Administration Gabapentin 300 mg 02/09/19 14:00 02/12/19 05:29 Neurontin PO 300 mg Q8HR JOSELYN Administration Hydromorphone HCl 0.5 mg 02/08/19 22:21 02/12/19 11:47 Dilaudid IV 0.5 mg Q3H PRN Administration Pain , Severe (7-10) Sodium Chloride 1,000 mls @ 100 mls/hr 02/08/19 23:00 02/11/19 18:30 Nacl 0.9% 1000 Ml IV 100 mls/hr DIRECT JOSELYN Administration Piperacillin Sod/Tazobactam Sod 4.5 gm in 100 mls @ 200 mls/hr 02/08/19 23:00 02/12/19 05:29 Zosyn/Ns 4.5gm/100ml IV 02/15/19 14:29 200 mls/hr Q8HR JOSELYN Administration Protocol Ondansetron HCl 4 mg 02/08/19 22:21 Zofran IV Q8H PRN Nausea And Vomiting Oxycodone/Acetaminophen 1 tab 02/11/19 09:30 Percocet 5/325 PO Q6H PRN Pain, Moderate (4-6) Sodium Chloride 10 ml 02/08/19 23:00 02/12/19 10:24 Sodium Chloride Flush Syringe 10 Ml IV 10 ml BID JOSELYN Administration Sodium Chloride 10 ml 02/08/19 22:21 Sodium Chloride Flush Syringe 10 Ml IV PRN PRN LINE FLUSH Warfarin Sodium 10 mg 02/09/19 17:00 02/11/19 18:26 Coumadin PO 10 mg DAILY@1700 JOSELYN Administration Protocol Warfarin Sodium 2.5 mg 02/11/19 17:00 02/11/19 18:24 Coumadin PO 2.5 mg DAILY@1700 JOSELYN Administration Nutrition/Malnutrition Assess - Dietary Evaluation Nutrition/Malnutrition Findings: Nutrition Notes Start: 02/09/19 11:52 Freq: Status: Active Protocol: Document 02/10/19 13:53 RM (Rec: 02/10/19 14:01 RM [id number]) Nutrition Notes Initial or Follow up Assessment Current Diagnosis Hypertension Other Pertinent Diagnosis Anxiety, Dementia, R & L Ischium wounds Current Diet Cardiac Labs/Tests Reviewed Pertinent Medications Coumadin Height 6 ft 1 in Weight 97.7 kg [place] Body Weight (kg) 83.63 BMI 28.4 Subjective/Other Information Pt stated that his appetite is good and that he eats all of his meals. Pt has increased protein needs d/t wounds but declined high protein ONS and requested double protein instead. Pt familiar with Coumadin/Vit K diet education. Percent of energy/protein needs met: 94%/71% Burn Absent Trauma Absent #1 Nutrition Diagnosis Increased nutrient needs ( specify in comment below) Comments: arginine, glutamine, protein Etiology wound healing As Evidenced by Signs and Symptoms R & L ischium wounds Is patient on ventilator? No Is Patient Ambulatory and/or Out of Bed No REE-([place]-confined to bed) [phone] Calculation Used for Recommendations [place] Additional Notes Protein Needs: 117-147g (1.2-1 .5g/kg) Fluid Needs: 1 ml/kcal Nutrition Intervention Change Diet Order: Cardiac w/double protein Add Supplement/Snack (indicate name/kcal Gary BID /protein ) Provides kCal: 190 Provides Protein (gm) 5 Goal #1 Meet at least 75% of calorie and protein needs via PO intakes Goal #2 Gary intake Anticipated Discharge Needs: Cardiac diet Follow-Up By: 02/15/19 Additional Comments Follow for PO and Gary intakes
[2019-02-12] MEDS: COUMADIN PO SCH ×2 (17:59→18:00)
[2019-02-12] MEDS: NACL 0.9% 1000 ML 1,000 ML IV SCH (18:09)
[2019-02-13] MEDS: DILAUDID IV PRN ×4 (00:39→09:51)
[2019-02-13] MEDS: NEURONTIN PO SCH (05:34)
[2019-02-13] MEDS: ZOSYN/NS 4.5GM/100ML 4.5 GM/100 ML VIAL IV SCH (05:34)
[2019-02-13 06:20] LABS: INR 1.25 (0.87-1.13)
[2019-02-13] MEDS: PEPCID PO SCH (09:45)
[2019-02-13] MEDS: SODIUM CHLORIDE FLUSH SYRINGE 10 ML IV SCH (09:45)
--- NOTE | 2019-02-13 10:13 | Discharge Summary ---
Providers - Providers Date of Admission: 02/08/19 18:44 Date of discharge: 02/13/19 Attending physician: MAXIME GILL 02/08/19 10:18 Consult to Physician [CONS] Urgent Comment: Consulting Provider: PATRIZIA COKER Physician Instructions: Reason For Exam: esbl uti 02/09/19 07:31 Consult to Physician [CONS] Routine Comment: Consulting Provider: NIKOLAY AWAD Physician Instructions: Reason For Exam: Testicular swelling 02/09/19 07:32 Consult to Wound/ET Nurse [CONS] Routine Reason For Exam: wound eval 02/09/19 11:25 Consult to Physician [CONS] Routine Comment: Consulting Provider: YOU SHAH Physician Instructions: Reason For Exam: bilat. ischial wounds eval. for debridment 02/10/19 09:55 PICC Line Insertion [Consult to PICC Line RN] [CONS] Urgent Reason For Exam: OPAT Type Line:: Midline 02/10/19 09:56 Consult to Case Management [CONS] Routine Services Needed at Discharge: Other Notified:: copy given to CM Additional Physician Instructions: [facility] ([facility] M [phone] O [phone] F [phone] OUTPATIENT PARENTERAL ANTIBIOTIC THERAPY ORDERS Diagnoses: ESBL proteus Antimicrobial administration: Zosyn 4.5 g IV every 8 hours for 7 days ending 02/15/19. Remove MIDline after last dose unless otherwise instructed. Order sent to [facility], awaiting approval . Lines: MIDLINE Lab monitoring: CBC, BUN, Creatinine, ALT, AST, once a week preferly on Thursday morning. Please fax results to [phone] and call [phone] for critical lab results. Pricila Stewart NP/MD Cory Date: 02/10/19 Primary care physician: EVE HOLMAN Hospitalization Condition: Fair Disposition: DC-01 TO HOME OR SELFCARE Exam - Constitutional Vitals: Temp Pulse Resp BP Pulse Ox 98.0 F 72 24 124/86 99 02/13/19 04:42 02/13/19 04:42 02/13/19 04:42 02/13/19 04:42 02/13/19 04:42 Plan Activity: no restrictions Diet: regular Plan of Treatment: 1.Follow up with PCP or [facility] in 1 week. 2.Check INR on Thursday02/15/19 by PCP. 3.Continue Zosyn iv until 02/15/19 Assessment: 1.Complicated UTI 2.History of recent ESBL UTI Follow up with: PRIMARY CARE, [Referring] - 3-5 Days Forms: Warfarin Discharge Instruction Prescriptions: Famotidine [Pepcid] 20 mg PO BID #60 tablet
[2019-02-13 12:33] VITALS: BP 142/73
[2019-02-13] MEDS ORDERED: COUMADIN PO SCH ×2 (17:00)
== END 2019-02-13 12:50 | disposition home health service (06) | DRG 689 ==
LOC: ED 08:40 → 3A 18:44
PROVIDERS: ADMIT Internal Medicine; ATTEND Internal Medicine
PROC: 05HY33Z Insertion of Infusion Device into Upper Vein, Percutaneous Approach (ICD-10-PCS; principal; 2019-02-10)
PROC: 05HY33Z Insertion of Infusion Device into Upper Vein, Percutaneous Approach (ICD-10-PCS; 2019-02-11)
DX: N39.0 Urinary tract infection, site not specified (principal); L89.154 Pressure ulcer of sacral region, stage 4; L89.314 Pressure ulcer of right buttock, stage 4; L89.323 Pressure ulcer of left buttock, stage 3; G82.20 Paraplegia, unspecified; B96.4 Proteus (mirabilis) (morganii) as the cause of diseases classified elsewhere; N50.89 Other specified disorders of the male genital organs; I10 Essential (primary) hypertension; F41.9 Anxiety disorder, unspecified; F03.90 Unspecified dementia, unspecified severity, without behavioral disturbance, psychotic disturbance, mood disturbance, and anxiety; F12.90 Cannabis use, unspecified, uncomplicated; F17.200 Nicotine dependence, unspecified, uncomplicated; Z90.5 Acquired absence of kidney; Z82.49 Family history of ischemic heart disease and other diseases of the circulatory system; Z83.3 Family history of diabetes mellitus; Z79.899 Other long term (current) drug therapy; Z79.01 Long term (current) use of anticoagulants
CPT/HCPCS: 36415; 51702; 74176; 80048; 80053; 80076; 81001; 82140; 82550; 83036; 83690; 85025; 85610; 87040; 87086; 93005; 93010; 93975; 96365; 96375; 99406; G0378; J1170; J2270; J2543; J7030